=== PATIENT | female | born 1975 | race Caucasian/White ===

== ENCOUNTER → 2021-04-21 08:37 | Outpatient (CLI) | payer OTHER, SELFPAY ==
--- NOTE | ~2021-04-21 | MR_ITS ---
EXAMINATION: MR shoulder LT wo con DATE: 04/21/2021 09:33 INDICATION: Left shoulder pain TECHNIQUE: Magnetic resonance imaging (MRI) of the left shoulder was performed without intravenous co ntrast. Sequences included axial PD-weighted FS FSE, coronal oblique PD-weighted FS FSE, coronal obli que T2-weighted FS FSE, sagittal PD-weighted FS FSE, and sagittal T1-weighted SE. COMPARISON: None. FINDINGS: Coracoacromial arch: The acromion undersurface is curved in morphology (type II). The coracoacromial ligament is normal. C hromic clavicular joint space appears normal. There is mild subarticular increased marrow signal at t he lateral head of the clavicle. Rotator cuff: There is a 11 x 10 x 4 mm globular region of low signal at the distal aspect of the supraspinatus ten don along its superior facet footplate most suggestive of calcific tendinitis. The supraspinatus tend on is otherwise unremarkable. The infraspinatus, teres minor and subscapularis tendons are normal. No rmal rotator cuff muscle bulk and signal. Biceps tendon, glenoid labrum and glenohumeral cartilage: Long head of the biceps tendon is normal. Glenoid labrum is normal. Glenohumeral cartilage is normal. Fluid: Physiologic amount of fluid in the glenohumeral joint and biceps tendon sheath. No loose osteochondra l bodies. Mild increased fluid signal in the subacromial/subdeltoid bursa consistent with minimal bur sitis. Bones: /Minute the lateral head of the clavicle there is normal marrow signal with no fracture or pathologic marrow replacing process. IMPRESSION: 1. Distal supraspinatus calcific tendinitis. 2. Mild edema at the lateral head of the clavicle with normal-appearing acromioclavicular joint space which could be seen in the setting of early distal clavicular osteolysis. 3. Minimal subacromial/subdeltoid bursitis. Reviewed, dictated and finalized at location A. [employer] IMPRESSION: 1. Distal supraspinatus calcific tendinitis. 2. Mild edema at the lateral head of the clavicle with normal-appearing acromio clavicular joint space which could be seen in the setting of early distal clavi cular osteolysis. 3. Minimal subacromial/subdeltoid bursitis.
== END ==
PROVIDERS: PCP Family Medicine; Visit Provider Orthopaedic Surgery
DX: M25.512 Pain in left shoulder (principal); G89.29 Other chronic pain; M75.32 Calcific tendinitis of left shoulder
CPT/HCPCS: 73221